=== PATIENT | male | born 1965 | race Caucasian/White ===

== ENCOUNTER 2020-10-11 15:14 | Emergency (ER) | payer BC ==
[2020-10-11 16:28] LABS: HEMOGLOBIN 16.7 gm/dl (14.0-17.5); RED BLOOD COUNT 5.17 M/UL (4.20-5.50); WHITE BLOOD COUNT 8.3 K/UL (4.5-11.0)
[2020-10-11 16:48] LABS: BUN/CREATININE RATIO 11 (0-10)
[2020-10-11] MEDS ORDERED: ASPIRIN CHEWABL81 MG PO (20:23)
== END 2020-10-11 20:37 | disposition home or self-care (01) ==
LOC: ER1 15:14 → CDU 18:23 → ER1 20:37
PROVIDERS: Physician Assistant
DX: R07.2 Precordial pain (principal); R06.02 Shortness of breath
CPT/HCPCS: 71045; 80053; 82550; 82553; 83874; 83880; 84484; 85025; 85379; 85610; 85730; 93005; 99285